=== PATIENT | female | born 1935 | race Caucasian/White ===

== ENCOUNTER → 2017-01-18 | Outpatient (CLI) | payer MEDICARE, OTHER ==
[~2017-01-18] MED LIST: AMLO1TAB5 PO; LEVO88TA4 PO; LISI-338 PO
--- NOTE | 2017-01-18 17:33 | RAD ---
DATE: 01/18/2017 EXAM: MAMMO DANIELA SCREENING BILATERAL HISTORY: A symptomatic screening mammogram. History of benign left breast biopsy. Family history with mother and 3 sisters with breast cancer. COMPARISON: 12/17/2015, 12/09/2014 This study was interpreted with the benefit of Computerized Aided Detection (CAD). The breast parenchyma shows scattered fibroglandular densities. Breast parenchyma level B. FINDINGS: Bilateral CC and MLO views as well as tomosynthesis was performed. Left breast: There is an indeterminate group of microcalcifications in the left breast along the posterior nipple line on the left MLO view at mid depth. Further evaluation with shows lateral and spot magnification views are recommended. Right breast: No suspicious masses, microcalcifications or areas of architectural distortion. Findings are stable from the prior mammogram. IMPRESSION: 1. Incomplete left mammogram. Additional views are recommended including a lateral view and spot magnification views. 2. Negative right mammogram. BI-RADS CATEGORY: 0 INCOMPLETE: NEEDS ADDITIONAL IMAGING EVALUATION AND/OR PRIOR MAMMOGRAMS FOR COMPARISON. RECOMMENDED FOLLOW-UP: ADD ADDITIONAL IMAGING PQRS compliance statement: Mammography is a sensitive method for finding small breast cancers, but it does not detect them all and is not a substitute for careful clinical examination. A negative mammogram does not negate a clinically suspicious finding and should not result in delay in biopsying a clinically suspicious abnormality. "Our facility is accredited by the [employer] Mammography [employer]."
== END | disposition home or self-care (01) ==
LOC: MAMMO 10:36
PROVIDERS: ATTEND Family Medicine
DX: Z12.31 Encounter for screening mammogram for malignant neoplasm of breast (principal)
CPT/HCPCS: 77063; G0202; 77067

== ENCOUNTER → 2017-01-26 | Outpatient (CLI) | payer MEDICARE, OTHER ==
--- NOTE | 2017-01-26 14:32 | RAD ---
EXAM: DIGITAL DIAGNOSTIC LT HISTORY: Evaluation of cluster calcifications seen on screening examination COMPARISON: Multiple priors including 12/17/2015 Spot magnification and lateral view of left breast is obtained. FINDINGS: The breast parenchyma Is heterogenously dense, which could reduce sensitivity of mammography. Breast parenchyma level III.. There is repeat demonstration of innumerable calcifications scattered throughout the left breast. There is a small cluster of microcalcifications within the left upper breast which may be new or slightly increased when compared to prior examinations. IMPRESSION: Cluster of calcifications within the left breast which is either new or better seen on current examination. Recommend that the patient return in 6 months for repeat mammogram to ensure that there is no increase in this finding. BI-RADS CATEGORY: 3 PROBABLE BENIGN-SHORT TERM F/U RECOMMENDED FOLLOW-UP: 6M 6 MONTH FOLLOW-UP PQRS compliance statement: Patient information was entered into a reminder system with a target due date for the next mammogram. Mammography is a sensitive method for finding small breast cancers, but it does not detect them all and is not a substitute for careful clinical examination. A negative mammogram does not negate a clinically suspicious finding and should not result in delay in biopsying a clinically suspicious abnormality. "Our facility is accredited by the [employer] Mammography [employer]."
== END | disposition home or self-care (01) ==
LOC: MAMMO 13:55
PROVIDERS: ATTEND Family Medicine
DX: R92.1 Mammographic calcification found on diagnostic imaging of breast (principal)
CPT/HCPCS: G0206; 77065

== ENCOUNTER → 2017-08-17 | Outpatient (CLI) | payer MEDICARE, OTHER ==
--- NOTE | 2017-08-17 15:00 | RAD ---
DATE: 08/17/2017 EXAM: DIGITAL DIAGNOSTIC LT HISTORY: 6 month follow-up calcifications COMPARISON: 01/26/2017 This study was interpreted with the benefit of Computerized Aided Detection (CAD). FINDINGS: Breast Density: HETERO The breast parenchyma Is heterogeneouslyy dense, which could reduce sensitivity of mammography. Breast parenchyma level C. Grouped microcalcifications identified in the left breast grossly similar to prior exam. Benign-appearing calcifications identified in the left breast. IMPRESSION: Grouped microcalcifications identified in the left upper breast grossly similar to prior exam. BI-RADS CATEGORY: 3 PROBABLE BENIGN-SHORT TERM F/U RECOMMENDED FOLLOW-UP: 6M 6 MONTH FOLLOW-UP PQRS compliance statement: Patient information was entered into a reminder system with a target due date 02/14/2018 for the next mammogram. Mammography is a sensitive method for finding small breast cancers, but it does not detect them all and is not a substitute for careful clinical examination. A negative mammogram does not negate a clinically suspicious finding and should not result in delay in biopsying a clinically suspicious abnormality. "Our facility is accredited by the [employer] Mammography [employer]."
== END | disposition home or self-care (01) ==
LOC: MAMMO 14:20
PROVIDERS: ATTEND Family Medicine
DX: R92.8 Other abnormal and inconclusive findings on diagnostic imaging of breast (principal); R92.0 Mammographic microcalcification found on diagnostic imaging of breast
CPT/HCPCS: 77065

== ENCOUNTER → 2018-02-15 | Outpatient (CLI) | payer MEDICARE, OTHER ==
--- NOTE | 2018-02-15 14:37 | RAD ---
DATE: 02/15/2018 EXAM: DIGITAL DIAGNOSTIC BILATERAL HISTORY: Follow-up left microcalcifications COMPARISON: 08/17/2017, 01/26/2017, 01/18/2017, This study was interpreted with the benefit of Computerized Aided Detection (CAD). The breast parenchyma shows scattered fibroglandular densities. Breast parenchyma level B. FINDINGS: 2-D and 3-D tomosynthesis imaging was performed in CC and MLO projections. The fibroglandular tissues are heterogeneous. No new or enlarging breast densities are seen. No spiculated mass or architectural distortion is evident. Numerous stable bilateral microcalcifications are evident. No suspicious microcalcifications have developed. IMPRESSION: Stable mammograms without evidence of malignancy. BI-RADS CATEGORY: 2 BENIGN FINDING(S) RECOMMENDED FOLLOW-UP: 12M 12 MONTH FOLLOW-UP PQRS compliance statement: Patient information was entered into a reminder system with a target due date for the next mammogram. Mammography is a sensitive method for finding small breast cancers, but it does not detect them all and is not a substitute for careful clinical examination. A negative mammogram does not negate a clinically suspicious finding and should not result in delay in biopsying a clinically suspicious abnormality. "Our facility is accredited by the [employer] Mammography Program."
== END | disposition home or self-care (01) ==
LOC: MAMMO 13:38
PROVIDERS: ATTEND Family Medicine
DX: R92.8 Other abnormal and inconclusive findings on diagnostic imaging of breast (principal); E78.5 Hyperlipidemia, unspecified; E03.9 Hypothyroidism, unspecified
CPT/HCPCS: 77066

== ENCOUNTER → 2019-07-19 | Outpatient (CLI) | payer MEDICARE, OTHER ==
--- NOTE | 2019-07-19 16:42 | RAD ---
DATE: 07/19/2019 EXAM: MAMMO DANIELA SCREENING BILATERAL HISTORY: Routine screening COMPARISON: 02/15/2018, 01/18/2017, 12/17/2015 This study was interpreted with the benefit of Computerized Aided Detection (CAD). Breast Density: HETERO The breast parenchyma is heterogenously dense, which could reduce sensitivity of mammography. Breast parenchyma level C. FINDINGS: Increase in calcification cluster at the right upper-outer breast noted. This cluster is approximately 10 cm deep from the nipple. No new masses or distortion. IMPRESSION: Increase in a right breast calcification cluster. BI-RADS CATEGORY: 0 INCOMPLETE: NEEDS ADDITIONAL IMAGING EVALUATION AND/OR PRIOR MAMMOGRAMS FOR COMPARISON. RECOMMENDED FOLLOW-UP: ADD ADDITIONAL IMAGING. Spot magnification imaging of the right upper outer breast calcification cluster is recommended in the CC and mediolateral projections. Medial lateral view of the right breast recommended. PQRS compliance statement: Patient information was entered into a reminder system with a target due date for the next mammogram. Mammography is a sensitive method for finding small breast cancers, but it does not detect them all and is not a substitute for careful clinical examination. A negative mammogram does not negate a clinically suspicious finding and should not result in delay in biopsying a clinically suspicious abnormality. "Our facility is accredited by the [employer] Mammography Program."
== END | disposition home or self-care (01) ==
LOC: MAMMO 13:32
PROVIDERS: ATTEND Family Medicine
DX: Z12.31 Encounter for screening mammogram for malignant neoplasm of breast (principal); N64.89 Other specified disorders of breast
CPT/HCPCS: 77063; 77067

== ENCOUNTER → 2019-08-20 | Outpatient (CLI) | payer MEDICARE, OTHER ==
--- NOTE | 2019-08-20 16:00 | RAD ---
DATE: August 20, 2019 EXAM: DIGITAL DIAGNOSTIC RT, RIGHT BREAST SONOGRAPHY HISTORY: Further evaluation of new calcifications of the upper outer quadrant of the right breast seen on screening mammogram dated July 19, 2019. COMPARISON: Screening mammogram dated July 2019. This study was interpreted with the benefit of Computerized Aided Detection (CAD). DIAGNOSTIC RIGHT-SIDED MAMMOGRAPHY FINDINGS: Focal digital magnification compression views of the right breast were performed in the CC and MLO projections and a digital 90 degree mediolateral view of the right breast was performed. Again seen is a group of microcalcifications located just above the nipple level at the 10:00 position of the right breast. These are located approximately 7 cm from the nipple. There is no layering of the calcifications. Therefore, these calcifications are indeterminate. RIGHT BREAST SONOGRAPHY: At the 10:00 position 7 cm from the nipple, 2 hypoechoic nodules are seen adjacent to one another. The larger nodule measures 5 mm in size. The smaller satellite nodule measures 3 mm. No abnormal color Doppler flow is seen in this area. There are punctate echodensities within the larger nodule which may represent the microcalcifications seen on the mammogram. Therefore, this sonographic finding corresponds to the mammographic finding. As a result, recommend ultrasound-guided core biopsy of the larger nodule. IMPRESSION: New indeterminate calcifications of the 10:00 position of the right breast. Corresponding 2 hypoechoic nodules are seen adjacent to one another at the 10:00 position of the right breast 7 cm from the nipple. Recommend ultrasound-guided core biopsy of the larger hypoechoic nodule. A biopsy clip may be placed at that time followed by mammography to determine whether the microcalcifications correspond to the sonographic nodule. If the microcalcifications do not correspond to the sonographic nodule, then stereotactic breast biopsy of these calcifications may be needed. Note-the health science instructor discussed the findings and recommendation with the patient after completion of the studies on August 20, 2019. In addition, the health science instructor called this report to the physician's office after completion of the examination on August 20, 2019. BI-RADS CATEGORY: 5 HIGHLY SUGGESTIVE MALIGNANCY RECOMMENDED FOLLOW-UP: BIO BIOPSY RECOMMENDED PQRS compliance statement: Patient information was entered into a reminder system with a target due date now for the next imaging study. Mammography is a sensitive method for finding small breast cancers, but it does not detect them all and is not a substitute for careful clinical examination. A negative mammogram does not negate a clinically suspicious finding and should not result in delay in biopsying a clinically suspicious abnormality. "Our facility is accredited by the [employer] Mammography Program."
--- NOTE | 2019-08-20 16:44 | RAD ---
See diagnostic mammogram report on the same day. BI-RADS Category 5 highly suggestive malignancy.
== END | disposition home or self-care (01) ==
LOC: MAMMO 13:52
PROVIDERS: ATTEND Family Medicine
DX: N63.11 Unspecified lump in the right breast, upper outer quadrant (principal)
CPT/HCPCS: 76641; 77065

== ENCOUNTER → 2020-11-03 | Outpatient (CLI) | payer MEDICARE, OTHER ==
[~2020-11-03] MED LIST changes: -LISI-338 PO; +LISI-517 PO
--- NOTE | 2020-11-03 09:38 | RAD ---
EXAM: Right knee, 3 views. HISTORY: Pain. COMPARISON: None. FINDINGS: 3 views of the right knee are obtained. There is medial compartment joint space narrowing, subchondral sclerosis and moderate marginal spurring. There is mild lateral and patellofemoral compar tment spurring. There is enthesopathy along the superior patella. There is trace joint fluid without a significant effusion. IMPRESSION: 1. Moderate medial compartment and mild lateral and patellofemoral compartment osteoarthritis of the right knee. 2. No acute osseous finding. Electronically signed by: Bre Graham MD (11/03/2020 9:35 AM) [id number]
== END ==
LOC: RAD 09:06
PROVIDERS: ATTEND Family Medicine
DX: M17.11 Unilateral primary osteoarthritis, right knee (principal)
CPT/HCPCS: 73562

== ENCOUNTER → 2021-03-18 | Outpatient (CLI) | payer MEDICARE, OTHER ==
--- NOTE | 2021-03-18 14:22 | RAD ---
DATE: 03/18/2021 EXAM: MAMMO DANIELA DIAG LT HISTORY: Six-month follow-up of probably benign left breast calcifications. COMPARISON: 09/08/2020, 07/19/2019, 08/17/2017, and other prior exams. This study was interpreted with the benefit of Computerized Aided Detection (CAD). Breast Density: SCATTERED The breast parenchyma shows scattered fibroglandular densities. Breast parenchyma level B. FINDINGS: Scattered calcifications in the left breast are unchanged. There is no suspicious mass or architectural distortion. IMPRESSION: Unchanged probably benign calcifications in the left breast. Recommend follow-up left breast mammogram in 6 months, at which time the patient is due for her bilateral annual mammogram. BI-RADS CATEGORY: 3 PROBABLY BENIGN FINDING(S)-SHORT INTERVAL FOLLOW-UP SUGGESTED RECOMMENDED FOLLOW-UP: 6M 6 MONTH FOLLOW-UP PQRS compliance statement: Patient information was entered into a reminder system with a target due date for the next mammogram. Mammography is a sensitive method for finding small breast cancers, but it does not detect them all and is not a substitute for careful clinical examination. A negative mammogram does not negate a clinically suspicious finding and should not result in delay in biopsying a clinically suspicious abnormality. "Our facility is accredited by the [employer] Mammography Program."
== END ==
LOC: MAMMO 12:52
PROVIDERS: ATTEND Family Medicine
DX: C50.411 Malignant neoplasm of upper-outer quadrant of right female breast (principal); R92.8 Other abnormal and inconclusive findings on diagnostic imaging of breast
CPT/HCPCS: 77065; G0279; 77061

== ENCOUNTER → 2021-10-01 | Outpatient (CLI) | payer MEDICARE, OTHER ==
[~2021-10-01] MED LIST changes: -LISI-517 PO; +LISI5TAB15 PO
--- NOTE | 2021-10-01 13:02 | RAD ---
PROCEDURE: MG DIGITAL BILAT DIAGNOSTIC MAMMO WITH DANIELA HISTORY: The patient is 86 years old and is seen for Reason: FOLLOW UP BREAST CANCER RIGHT BREAST 0 / Spl. Instructions: / History: . COMPARISON: March 18, 2021, September 08, 2020, and March 05, 2020 TECHNIQUE: CC and MLO views of both breasts were obtained. Images were processed by the [employer] computer-aided detection system. DENSITY: There are scattered fibroglandular densities. FINDINGS: Right mammogram: Postoperative changes within the right upper outer breast, unchanged. Dystrophic epi cifications, unchanged. Well-circumscribed mass within the right medial breast, unchanged. Left mammogram: Coarse calcifications throughout the left breast, unchanged. No new suspicious microc atheter tissue, mass or architectural distortion. IMPRESSION: Benign findings. No evidence of malignancy. Right postlumpectomy changes, similar compare d to prior. Recommend annual screening mammograms per [employer] guidelines. She will be due in one year. BI-RADS category 2 Benign Patient entered into a reminder system for annual screening mammogram. Electronically signed by: Everardo Reyes DO (10/01/2021 1:00 PM) [id number]
--- NOTE | 2021-10-01 13:55 | RAD ---
INDICATION: Screening for osteopenia/osteoporosis. Postmenopausal evaluation COMPARISON: July 2016 TECHNIQUE: Bone densitometry was performed through the lumbar spine and proximal femur. IMPRESSION: Lumbar Spine: BMD: 1.18 T-Score: 0 Range: Normal. Decreased by 3 percent from prior. Proximal Femur: BMD: 0.88 T-Score: -0.7 Range: Lower limits of normal. Decreased by 9 percent from prior. World Health Organization Criteria for Bone Density: T-Score: > -1.0: Normal Range < -1.0 to -2.5: Osteopenic Range < -2.5: Osteoporotic Range Electronically signed by: Rafita Underwood MD (10/01/2021 1:53 PM) [id number]
== END ==
LOC: MAMMO 12:02
PROVIDERS: ATTEND Internal Medicine Hematology & Oncology
DX: R92.1 Mammographic calcification found on diagnostic imaging of breast (principal); Z90.12 Acquired absence of left breast and nipple; Z78.0 Asymptomatic menopausal state
CPT/HCPCS: 77066; 77080; G0279; 77062